=== PATIENT | female | born 1940 | race Caucasian/White ===

== ENCOUNTER 2016-05-05 02:36 | Inpatient (IN) | payer MEDICARE ==
[~2016-05-05] VITALS: Ht 152.4 cm; Wt 74.9 kg
[2016-05-05] MEDS ORDERED: AMLO-511 PO (02:47)
[2016-05-05] MEDS ORDERED: METF500T4 PO (02:47)
[2016-05-05] MEDS ORDERED: METO25 PO (02:47)
[2016-05-05 02:56] LABS: GLUCOSE COMMENT 1 Doctor Notified; GLUCOSE,POINT OF CARE 151 MG/DL (70-110)
[2016-05-05] MEDS ORDERED: 0.9% SODIUM CHLORIDE 5 ML NEB SOLUTION NEB ONE (03:09)
[2016-05-05] MEDS ORDERED: CefTRIAXone 1 GM/DEXTROSE 50 ML IV ONE (03:15)
[2016-05-05] MEDS ORDERED: ALBUTEROL SULFATE 5 MG/ML 20 ML NEB SOLN [BULK] NEB ONE (03:15)
[2016-05-05] MEDS ORDERED: IPRATROPIUM BROMIDE 0.5 MG/2.5 ML NEB SOLUTION NEB ONE (03:15)
[2016-05-05 03:31] LABS: BASOPHILS % (AUTO) 0.3 % (0.0-2.0); EOSINOPHILS % (AUTO) 3.7 % (1.0-6.0); HEMATOCRIT 31.8 % (36-46); HEMOGLOBIN 10.3 g/dL (12.0-16.0); LYMPHOCYTES % (AUTO) 38.6 % (22.0-44.0); MEAN CORPUSCULAR HEMOGLOBIN 30.7 pg (26.0-34.0); MEAN CORPUSCULAR HGB CONC 32.5 G/dL (31.0-37.0); MEAN CORPUSCULAR VOLUME 94 fL (80-100); MONOCYTES # (AUTO) 0.5 K/uL (0.1-1.0); MONOCYTES % (AUTO) 4.8 % (2.0-9.0); NEUTROPHILS # (AUTO) 5.5 K/uL (1.8-7.7); NEUTROPHILS % (AUTO) 52.6 % (40.0-70.0); PLATELET COUNT (AUTO) 202 K/uL (150-450); RED BLOOD CELL COUNT(AUTO) 3.37 MIL/uL (4.00-5.20); RED CELL DISTRIBUTION WIDTH 12.8 % (11.5-14.5); WHITE BLOOD COUNT (AUTO) 10.4 K/uL (4.5-11.0)
[2016-05-05 03:40] LABS: CREATININE 3.1 mg/dL (0.60-1.30); POTASSIUM 4.8 mmol/L (3.5-5.1)
[2016-05-05 04:00] LABS: LACTIC ACID 2.5 mmol/L (0.4-2.0)
[2016-05-05 04:05] LABS: ALBUMIN 3.2 g/dL (3.4-5.0); BILIRUBIN,TOTAL 0.3 mg/dL (0.1-1.0); CREATINE KINASE MB 5.3 ng/mL (0-5); TOTAL PROTEIN, SERUM 6.8 g/dL (6.4-8.2)
[2016-05-05] MEDS ORDERED: NITROGLYCERIN 2% (1 GM=INCH) PACKET TP ONE (04:15)
[2016-05-05] MEDS ORDERED: FUROSEMIDE 40 MG/4 ML VIAL IVP ONE (04:15)
[2016-05-05] MEDS ORDERED: ASPIRIN 325 MG EC TABLET PO ONE (04:15)
[2016-05-05 04:51] LABS: APPEARANCE,URINE CLOUDY (CLEAR); GLUCOSE, URINE (UA) NEGATIVE (NEGATIVE); KETONES,URINE NEGATIVE (NEGATIVE); LEUKOCYTE ESTERASE ,URINE MODERATE (NEGATIVE); OCCULT BLOOD,URINE TRACE (NEGATIVE); PH,URINE 6.5 (5.0-8.0); PROTEIN,URINE SEE CONFIRM (NEGATIVE)
[2016-05-05 04:53] LABS: ADD UA MICROSCOPIC YES
[2016-05-05] MEDS ORDERED: ZOLPIDEM TARTRATE 10 MG TABLET PO PRN (05:00)
[2016-05-05] MEDS ORDERED: HEPARIN SODIUM,PORCINE 5,000 UNITS/ML VIAL IVP ONE ×2 (05:00→05:15)
[2016-05-05] MEDS ORDERED: ACETAMINOPHEN 325 MG TABLET PO PRN (05:00)
[2016-05-05 05:02] LABS: SULFOSALICYLIC ACID,URINE 3+ (Negative); WBC,URINE 51-100 /HPF (0-5)
[2016-05-05] MEDS ORDERED: HEPARIN SODIUM,PORCINE 5,000 UNITS/ML VIAL IVP PRN ×2 (05:15)
[2016-05-05 05:23] LABS: REFLEX LACTIC ACID? YES YES
[2016-05-05 05:26] LABS: PROTHROMBIN TIME 10.7 SEC (9.4-11.6)
[2016-05-05] MEDS: HEPARIN SODIUM 25000 UNITS/D5W 250 ML IV PRN (05:47)
[2016-05-05] MEDS ORDERED: MAG HYDROX/AL HYDROX/SIMETH ES 30 ML SUSPENSION UDCUP PO ONE (06:45)
[2016-05-05 07:58] LABS: HEMATOCRIT 28.3 % (36-46); HEMOGLOBIN 9.3 g/dL (12.0-16.0); MEAN CORPUSCULAR HEMOGLOBIN 30.8 pg (26.0-34.0); MEAN CORPUSCULAR HGB CONC 32.9 G/dL (31.0-37.0); MEAN CORPUSCULAR VOLUME 93 fL (80-100); PLATELET COUNT (AUTO) 196 K/uL (150-450); RED BLOOD CELL COUNT(AUTO) 3.03 MIL/uL (4.00-5.20); WHITE BLOOD COUNT (AUTO) 11.4 K/uL (4.5-11.0)
[2016-05-05] MEDS ORDERED: HEPARIN SODIUM,PORCINE 5,000 UNITS/ML VIAL SQ SCH (08:00)
[2016-05-05 08:15] LABS: BAND NEUTROPHILS % (MANUAL) 16 % (1-5); LYMPHOCYTES % (MANUAL) 10 % (22-44); RBC MORPHOLOGY COMMENT NORMAL RBC MORPH; TOTAL CELLS COUNTED 100
[2016-05-05 08:22] LABS: HEMOGLOBIN A1C 5.2 % (4.5-6.2)
[2016-05-05] MEDS: PANTOPRAZOLE SODIUM 40 MG DR TABLET PO SCH (08:50)
[2016-05-05] MEDS: AmLODIPine BESYLATE 5 MG TABLET PO SCH (08:50)
[2016-05-05] MEDS ORDERED: METOPROLOL TARTRATE 25 MG TABLET PO SCH (09:00)
[2016-05-05 09:57] LABS: GLUCOSE,POINT OF CARE 232 MG/DL (70-110)
[2016-05-05 12:06] LABS: GLUCOSE,POINT OF CARE 140 MG/DL (70-110)
[2016-05-06 02:25] LABS: GLUCOSE,POINT OF CARE 106 MG/DL (70-110)
[2016-05-06 03:12] LABS: BASOPHILS # (AUTO) 0.06 K/uL (0.00-0.20); BASOPHILS % (AUTO) 0.7 % (0.0-2.0); EOSINOPHILS # (AUTO) 0.12 K/uL (0.00-0.70); EOSINOPHILS % (AUTO) 1.37 % (1.0-6.0); HEMATOCRIT 26.3 % (36-46); HEMOGLOBIN 8.8 g/dL (12.0-16.0); LYMPHOCYTES # (AUTO) 1.9 K/uL (1.0-4.8); LYMPHOCYTES % (AUTO) 21.6 % (22.0-44.0); MEAN CORPUSCULAR HEMOGLOBIN 30.9 pg (26.0-34.0); MEAN CORPUSCULAR HGB CONC 33.3 G/dL (31.0-37.0); MEAN CORPUSCULAR VOLUME 93 fL (80-100); MONOCYTES # (AUTO) 0.6 K/uL (0.1-1.0); MONOCYTES % (AUTO) 7.2 % (2.0-9.0); NEUTROPHILS # (AUTO) 6.2 K/uL (1.8-7.7); NEUTROPHILS % (AUTO) 69.2 % (40.0-70.0); PLATELET COUNT (AUTO) 183 K/uL (150-450); RED BLOOD CELL COUNT(AUTO) 2.84 MIL/uL (4.00-5.20); WHITE BLOOD COUNT (AUTO) 8.9 K/uL (4.5-11.0)
[2016-05-06] MEDS: HEPARIN SODIUM 25000 UNITS/D5W 250 ML IV PRN (06:24)
[2016-05-06] MEDS: FUROSEMIDE 40 MG/4 ML VIAL IVP SCH (08:03)
[2016-05-06] MEDS: PANTOPRAZOLE SODIUM 40 MG DR TABLET PO SCH (08:04)
[2016-05-06] MEDS: NITROGLYCERIN 2% (1 GM=INCH) PACKET TP SCH ×2 (08:04→16:22)
[2016-05-06] MEDS: AmLODIPine BESYLATE 5 MG TABLET PO SCH (08:04)
[2016-05-06 08:31] LABS: BASOPHILS % (AUTO) 1.1 % (0.0-2.0); EOSINOPHILS % (AUTO) 1.5 % (1.0-6.0); HEMOGLOBIN 9.1 g/dL (12.0-16.0); LYMPHOCYTES # (AUTO) 1.5 K/uL (1.0-4.8); LYMPHOCYTES % (AUTO) 16.1 % (22.0-44.0); MEAN CORPUSCULAR HEMOGLOBIN 30.3 pg (26.0-34.0); MEAN CORPUSCULAR HGB CONC 32.6 G/dL (31.0-37.0); MEAN CORPUSCULAR VOLUME 93 fL (80-100); MONOCYTES # (AUTO) 0.7 K/uL (0.1-1.0); MONOCYTES % (AUTO) 7.1 % (2.0-9.0); NEUTROPHILS # (AUTO) 6.9 K/uL (1.8-7.7); NEUTROPHILS % (AUTO) 74.2 % (40.0-70.0); PLATELET COUNT (AUTO) 194 K/uL (150-450); RED BLOOD CELL COUNT(AUTO) 3.01 MIL/uL (4.00-5.20); RED CELL DISTRIBUTION WIDTH 12.8 % (11.5-14.5); WHITE BLOOD COUNT (AUTO) 9.3 K/uL (4.5-11.0)
[2016-05-06 08:42] LABS: INR 1.1 (0.9-1.1); PROTHROMBIN TIME 11.1 SEC (9.4-11.6)
[2016-05-06 08:44] LABS: CALCIUM, TOTAL 8.9 mg/dL (8.8-10.5); CREATININE 3.28 mg/dL (0.60-1.30); POTASSIUM 5.5 mmol/L (3.5-5.1)
[2016-05-06] MEDS ORDERED: METOPROLOL TARTRATE 25 MG TABLET PO SCH (09:00)
[2016-05-06] MEDS ORDERED: SODIUM POLYSTYRENE SULFONATE 15 GM/60 ML SUSPENSION BOTTLE PO ONE ×2 (09:00→09:30)
[2016-05-06 09:05] LABS: BILIRUBIN,TOTAL 0.5 mg/dL (0.1-1.0); MAGNESIUM 1.9 mg/dL (1.80-2.40); TOTAL PROTEIN, SERUM 6.9 g/dL (6.4-8.2)
[2016-05-06] MEDS: ASPIRIN 81 MG EC TABLET PO SCH (09:24)
[2016-05-06] MEDS: CefTRIAXone 1 GM/DEXTROSE 50 ML IV SCH (09:39)
[2016-05-06] MEDS: EPOETIN ALFA 10,000 UNITS/ML VIAL SQ SCH (09:40)
[2016-05-06] MEDS: METOPROLOL TARTRATE 25 MG TABLET PO SCH ×2 (10:10→10:44)
[2016-05-06] MEDS ORDERED: ONDANSETRON HCL 4 MG/2 ML VIAL IVP PRN (11:00)
[2016-05-06 12:00] VITALS: BP 165/87
[2016-05-06 14:11] LABS: GLUCOSE,POINT OF CARE 154 MG/DL (70-110)
[2016-05-06 16:00] VITALS: BP 176/95
[2016-05-06] MEDS ORDERED: INFLUENZA VIRUS VACCINE QVS 2016-17 (3YR+)/PF 60 MCG/0.5 ML SYRINGE IM ONE (16:30)
[2016-05-06 20:00] VITALS: BP 166/84
[2016-05-06 20:35] LABS: EOSINOPHILS % (AUTO) 0 % (1.0-6.0); HEMATOCRIT 28.2 % (36-46); HEMOGLOBIN 9.4 g/dL (12.0-16.0); LYMPHOCYTES # (AUTO) 1.3 K/uL (1.0-4.8); LYMPHOCYTES % (AUTO) 8.2 % (22.0-44.0); MEAN CORPUSCULAR HEMOGLOBIN 30.6 pg (26.0-34.0); MEAN CORPUSCULAR HGB CONC 33.2 G/dL (31.0-37.0); MEAN CORPUSCULAR VOLUME 92 fL (80-100); MONOCYTES # (AUTO) 0.7 K/uL (0.1-1.0); MONOCYTES % (AUTO) 4.6 % (2.0-9.0); NEUTROPHILS # (AUTO) 13.6 K/uL (1.8-7.7); PLATELET COUNT (AUTO) 185 K/uL (150-450); RED BLOOD CELL COUNT(AUTO) 3.06 MIL/uL (4.00-5.20); RED CELL DISTRIBUTION WIDTH 12.5 % (11.5-14.5)
[2016-05-06 20:36] LABS: NEUTROPHILS % (AUTO) 87.2 % (40.0-70.0); WHITE BLOOD COUNT (AUTO) 15.6 K/uL (4.5-11.0)
[2016-05-06 20:50] LABS: RBC MORPHOLOGY COMMENT NORMAL RBC MORPH
[2016-05-07] VITALS (13 sets, daily range): BP systolic 140–175; BP diastolic 67–86
[2016-05-07] MEDS: NITROGLYCERIN 2% (1 GM=INCH) PACKET TP SCH ×3 (00:09→16:20)
[2016-05-07] MEDS: DEXTROSE 50%-WATER 25 GM/50 ML SYRINGE IVP PRN ×2 (05:31→17:41)
[2016-05-07 06:15] LABS: BASOPHILS % (AUTO) 0.3 % (0.0-2.0); EOSINOPHILS % (AUTO) 0.4 % (1.0-6.0); HEMATOCRIT 25.2 % (36-46); HEMOGLOBIN 8.2 g/dL (12.0-16.0); LYMPHOCYTES # (AUTO) 2.1 K/uL (1.0-4.8); LYMPHOCYTES % (AUTO) 19.6 % (22.0-44.0); MEAN CORPUSCULAR HEMOGLOBIN 30.4 pg (26.0-34.0); MEAN CORPUSCULAR HGB CONC 32.5 G/dL (31.0-37.0); MEAN CORPUSCULAR VOLUME 94 fL (80-100); MONOCYTES # (AUTO) 0.7 K/uL (0.1-1.0); MONOCYTES % (AUTO) 6.7 % (2.0-9.0); NEUTROPHILS # (AUTO) 7.9 K/uL (1.8-7.7); PLATELET COUNT (AUTO) 168 K/uL (150-450); RED BLOOD CELL COUNT(AUTO) 2.69 MIL/uL (4.00-5.20); RED CELL DISTRIBUTION WIDTH 12.4 % (11.5-14.5); WHITE BLOOD COUNT (AUTO) 10.9 K/uL (4.5-11.0)
[2016-05-07 06:20] LABS: ALBUMIN 2.5 g/dL (3.4-5.0); BILIRUBIN,TOTAL 0.5 mg/dL (0.1-1.0); CALCIUM, TOTAL 8.4 mg/dL (8.8-10.5); CHOL/HDL RATIO 2.1 (3.9-5.7); CREATININE 3.37 mg/dL (0.60-1.30); MAGNESIUM 1.8 mg/dL (1.80-2.40); PHOSPHORUS 5.1 mg/dL (2.5-4.9); TOTAL PROTEIN, SERUM 5.9 g/dL (6.4-8.2)
[2016-05-07 07:32] LABS: HEMOGLOBIN A1C 5.1 % (4.5-6.2)
[2016-05-07] MEDS ORDERED: SODIUM CHLORIDE 0.9% 250 ML IV ONE (08:49)
[2016-05-07] MEDS: FUROSEMIDE 40 MG/4 ML VIAL IVP SCH (09:46)
[2016-05-07] MEDS: PANTOPRAZOLE SODIUM 40 MG DR TABLET PO SCH (09:47)
[2016-05-07] MEDS: AmLODIPine BESYLATE 5 MG TABLET PO SCH (09:47)
[2016-05-07] MEDS: ASPIRIN 81 MG EC TABLET PO SCH (09:48)
[2016-05-07] MEDS: CefTRIAXone 1 GM/DEXTROSE 50 ML IV SCH (09:49)
[2016-05-07] MEDS ORDERED: SODIUM CHLORIDE 0.9% 500 ML IV ONE (09:53)
[2016-05-07] MEDS: SOD FERRIC GLUC COMPLX/SUCROSE 125 MG in SODIUM CHLORIDE 0.9% 100 ML IV SCH (11:22)
[2016-05-07] MEDS: CALCIUM ACETATE 667 MG CAPSULE PO SCH ×2 (12:00→18:00)
[2016-05-07] MEDS ORDERED: FUROSEMIDE 40 MG/4 ML VIAL IVP ONE (12:00)
[2016-05-07] MEDS: INSULIN ASPART 100 UNITS/ML SQ PRN (12:21)
[2016-05-07 16:31] LABS: GLUCOSE COMMENT 1 Received Meds; GLUCOSE,POINT OF CARE 163 MG/DL (70-110)
[2016-05-07 18:26] LABS: GLUCOSE COMMENT 1 Juice/Food/D50 Given; GLUCOSE,POINT OF CARE 64 MG/DL (70-110)
[2016-05-07 18:26] LABS: GLUCOSE,POINT OF CARE 178 MG/DL (70-110)
[2016-05-07] MEDS: METOPROLOL TARTRATE 25 MG TABLET PO SCH (20:24)
[2016-05-07 20:46] LABS: GLUCOSE COMMENT 1 Received Meds; GLUCOSE,POINT OF CARE 169 MG/DL (70-110)
[2016-05-07 22:23] LABS: HEMOGLOBIN 10.1 g/dL (12.0-16.0)
[2016-05-08] VITALS (7 sets, daily range): BP systolic 148–175; BP diastolic 71–89
[2016-05-08] MEDS: NITROGLYCERIN 2% (1 GM=INCH) PACKET TP SCH ×3 (01:26→16:16)
[2016-05-08 06:41] LABS: BASOPHILS % (AUTO) 0.2 % (0.0-2.0); EOSINOPHILS % (AUTO) 4.3 % (1.0-6.0); HEMATOCRIT 30.2 % (36-46); HEMOGLOBIN 9.8 g/dL (12.0-16.0); LYMPHOCYTES # (AUTO) 1.8 K/uL (1.0-4.8); LYMPHOCYTES % (AUTO) 19.9 % (22.0-44.0); MEAN CORPUSCULAR HEMOGLOBIN 30.4 pg (26.0-34.0); MEAN CORPUSCULAR HGB CONC 32.4 G/dL (31.0-37.0); MEAN CORPUSCULAR VOLUME 94 fL (80-100); MONOCYTES # (AUTO) 0.7 K/uL (0.1-1.0); MONOCYTES % (AUTO) 8.1 % (2.0-9.0); NEUTROPHILS # (AUTO) 6.1 K/uL (1.8-7.7); NEUTROPHILS % (AUTO) 67.5 % (40.0-70.0); PLATELET COUNT (AUTO) 162 K/uL (150-450); RED BLOOD CELL COUNT(AUTO) 3.22 MIL/uL (4.00-5.20); RED CELL DISTRIBUTION WIDTH 13.3 % (11.5-14.5)
[2016-05-08 07:00] LABS: ALBUMIN 2.6 g/dL (3.4-5.0); BILIRUBIN,TOTAL 0.5 mg/dL (0.1-1.0); CALCIUM, TOTAL 8.4 mg/dL (8.8-10.5); CREATININE 3.4 mg/dL (0.60-1.30); MAGNESIUM 1.8 mg/dL (1.80-2.40); PHOSPHORUS 4.4 mg/dL (2.5-4.9); POTASSIUM 3.8 mmol/L (3.5-5.1); TOTAL PROTEIN, SERUM 6.2 g/dL (6.4-8.2)
[2016-05-08] MEDS: CALCIUM ACETATE 667 MG CAPSULE PO SCH ×3 (08:26→17:50)
[2016-05-08] MEDS: CefTRIAXone 1 GM/DEXTROSE 50 ML IV SCH (08:26)
[2016-05-08] MEDS: ASPIRIN 81 MG EC TABLET PO SCH (08:33)
[2016-05-08] MEDS ORDERED: SODIUM CHLORIDE 0.9% 100 ML ONE (08:39)
[2016-05-08] MEDS: METOPROLOL TARTRATE 25 MG TABLET PO SCH ×2 (08:58→20:14)
[2016-05-08] MEDS: FUROSEMIDE 40 MG/4 ML VIAL IVP SCH (08:58)
[2016-05-08] MEDS: AmLODIPine BESYLATE 5 MG TABLET PO SCH (08:58)
[2016-05-08] MEDS: PANTOPRAZOLE SODIUM 40 MG DR TABLET PO SCH (08:58)
[2016-05-08] MEDS: SOD FERRIC GLUC COMPLX/SUCROSE 125 MG in SODIUM CHLORIDE 0.9% 100 ML IV SCH (08:59)
[2016-05-08] MEDS: EPOETIN ALFA 10,000 UNITS/ML VIAL SQ SCH (08:59)
[2016-05-08 11:16] LABS: GLUCOSE,POINT OF CARE 132 MG/DL (70-110)
[2016-05-08 17:46] LABS: GLUCOSE,POINT OF CARE 88 MG/DL (70-110)
[2016-05-08 17:47] LABS: GLUCOSE,POINT OF CARE 116 MG/DL (70-110)
[2016-05-08 17:47] LABS: GLUCOSE,POINT OF CARE 113 MG/DL (70-110)
[2016-05-08] MEDS: INSULIN ASPART 100 UNITS/ML SQ PRN (17:52)
[2016-05-08 21:31] LABS: GLUCOSE,POINT OF CARE 123 MG/DL (70-110)
[2016-05-08 21:31] LABS: GLUCOSE,POINT OF CARE 141 MG/DL (70-110)
[2016-05-08 21:31] LABS: GLUCOSE COMMENT 1 Received Meds; GLUCOSE,POINT OF CARE 66 MG/DL (70-110)
[2016-05-08 22:46] LABS: GLUCOSE COMMENT 1 Received Meds; GLUCOSE,POINT OF CARE 171 MG/DL (70-110)
[2016-05-09] MEDS: NITROGLYCERIN 2% (1 GM=INCH) PACKET TP SCH ×4 (01:45→23:55)
[2016-05-09 04:16] LABS: ALPHA-1 URINE (ELP24) 5.2 %; ALPHA-2 URINE(ELP24) 4.5 %; BETA URINE(ELP24) 12.2 %; GAMMA URINE(ELP24) 14.1 %
[2016-05-09 04:32] VITALS: BP 158/73
[2016-05-09 06:46] LABS: GLUCOSE,POINT OF CARE 87 MG/DL (70-110)
[2016-05-09 06:47] LABS: BASOPHILS % (AUTO) 0.4 % (0.0-2.0); EOSINOPHILS % (AUTO) 8.4 % (1.0-6.0); HEMATOCRIT 30.8 % (36-46); LYMPHOCYTES # (AUTO) 1.6 K/uL (1.0-4.8); LYMPHOCYTES % (AUTO) 21.4 % (22.0-44.0); MEAN CORPUSCULAR HEMOGLOBIN 30.4 pg (26.0-34.0); MEAN CORPUSCULAR HGB CONC 32.3 G/dL (31.0-37.0); MEAN CORPUSCULAR VOLUME 94 fL (80-100); MONOCYTES # (AUTO) 0.7 K/uL (0.1-1.0); MONOCYTES % (AUTO) 9.5 % (2.0-9.0); NEUTROPHILS # (AUTO) 4.5 K/uL (1.8-7.7); NEUTROPHILS % (AUTO) 60.3 % (40.0-70.0); PLATELET COUNT (AUTO) 159 K/uL (150-450); RED BLOOD CELL COUNT(AUTO) 3.28 MIL/uL (4.00-5.20); WHITE BLOOD COUNT (AUTO) 7.5 K/uL (4.5-11.0)
[2016-05-09 07:11] LABS: ALBUMIN 2.4 g/dL (3.4-5.0); BILIRUBIN,TOTAL 0.3 mg/dL (0.1-1.0); CALCIUM, TOTAL 8.6 mg/dL (8.8-10.5); CREATININE 3.36 mg/dL (0.60-1.30); MAGNESIUM 1.7 mg/dL (1.80-2.40); POTASSIUM 3.5 mmol/L (3.5-5.1); TOTAL PROTEIN, SERUM 6.2 g/dL (6.4-8.2)
[2016-05-09 07:34] VITALS: BP 152/69
[2016-05-09] MEDS: AmLODIPine BESYLATE 5 MG TABLET PO SCH (08:29)
[2016-05-09] MEDS: CefTRIAXone 1 GM/DEXTROSE 50 ML IV SCH (08:29)
[2016-05-09] MEDS: FUROSEMIDE 40 MG/4 ML VIAL IVP SCH (08:29)
[2016-05-09] MEDS: PANTOPRAZOLE SODIUM 40 MG DR TABLET PO SCH (08:30)
[2016-05-09] MEDS: ASPIRIN 81 MG EC TABLET PO SCH (08:30)
[2016-05-09] MEDS: CALCIUM ACETATE 667 MG CAPSULE PO SCH ×3 (08:30→17:48)
[2016-05-09] MEDS: METOPROLOL TARTRATE 25 MG TABLET PO SCH ×2 (08:30→20:31)
[2016-05-09] MEDS: SOD FERRIC GLUC COMPLX/SUCROSE 125 MG in SODIUM CHLORIDE 0.9% 100 ML IV SCH (09:32)
[2016-05-09 11:37] VITALS: BP 160/76
[2016-05-09 12:17] LABS: GLUCOSE COMMENT 1 Received Meds; GLUCOSE,POINT OF CARE 133 MG/DL (70-110)
[2016-05-09] MEDS: ACETYLCYSTEINE 20% 200 MG/ML 4 ML ORAL SOLUTION PO SCH ×2 (12:42→20:36)
[2016-05-09 15:31] VITALS: BP 161/73
[2016-05-09 17:31] LABS: GLUCOSE COMMENT 1 Received Meds; GLUCOSE,POINT OF CARE 142 MG/DL (70-110)
[2016-05-09] MEDS: SODIUM CHLORIDE 0.9% 1,000 ML IV SCH (17:51)
[2016-05-09] MEDS: INSULIN ASPART 100 UNITS/ML SQ PRN (18:00)
[2016-05-09 20:06] VITALS: BP 156/74
[2016-05-10] VITALS (8 sets, daily range): BP systolic 139–172; BP diastolic 66–81
[2016-05-10 07:51] LABS: GLUCOSE,POINT OF CARE 106 MG/DL (70-110)
[2016-05-10] MEDS: SODIUM CHLORIDE 0.9% 1,000 ML IV SCH (07:52)
[2016-05-10] MEDS: ACETYLCYSTEINE 20% 200 MG/ML 4 ML ORAL SOLUTION PO SCH (07:53)
[2016-05-10] MEDS: PANTOPRAZOLE SODIUM 40 MG DR TABLET PO SCH (07:53)
[2016-05-10] MEDS: CefTRIAXone 1 GM/DEXTROSE 50 ML IV SCH (07:53)
[2016-05-10] MEDS: CALCIUM ACETATE 667 MG CAPSULE PO SCH ×3 (07:53→18:18)
[2016-05-10] MEDS: EPOETIN ALFA 10,000 UNITS/ML VIAL SQ SCH (07:53)
[2016-05-10] MEDS: METOPROLOL TARTRATE 25 MG TABLET PO SCH ×2 (07:54→20:55)
[2016-05-10] MEDS: NITROGLYCERIN 2% (1 GM=INCH) PACKET TP SCH ×2 (07:54→16:56)
[2016-05-10] MEDS: ASPIRIN 81 MG EC TABLET PO SCH (07:54)
[2016-05-10] MEDS: AmLODIPine BESYLATE 5 MG TABLET PO SCH (07:54)
[2016-05-10 09:22] LABS: CALCIUM, TOTAL 8.4 mg/dL (8.8-10.5); CREATININE 3.61 mg/dL (0.60-1.30); POTASSIUM 3.7 mmol/L (3.5-5.1)
[2016-05-10] MEDS: SOD FERRIC GLUC COMPLX/SUCROSE 125 MG in SODIUM CHLORIDE 0.9% 100 ML IV SCH (11:40)
[2016-05-10 20:16] LABS: GLUCOSE COMMENT 1 Received Meds; GLUCOSE,POINT OF CARE 138 MG/DL (70-110)
[2016-05-10 20:16] LABS: GLUCOSE,POINT OF CARE 93 MG/DL (70-110)
[2016-05-10 20:16] LABS: GLUCOSE,POINT OF CARE 136 MG/DL (70-110)
[2016-05-11] MEDS: NITROGLYCERIN 2% (1 GM=INCH) PACKET TP SCH ×3 (00:26→16:06)
[2016-05-11 01:26] LABS: GLUCOSE COMMENT 1 Received Meds; GLUCOSE,POINT OF CARE 174 MG/DL (70-110)
[2016-05-11 04:34] VITALS: BP 184/78
[2016-05-11] MEDS: HydrALAZINE HCL 20 MG/ML VIAL IVP PRN (04:39)
[2016-05-11 07:01] LABS: GLUCOSE,POINT OF CARE 91 MG/DL (70-110)
[2016-05-11 07:34] LABS: BASOPHILS % (AUTO) 0.6 % (0.0-2.0); EOSINOPHILS % (AUTO) 8.4 % (1.0-6.0); HEMATOCRIT 32.9 % (36-46); HEMOGLOBIN 10.7 g/dL (12.0-16.0); LYMPHOCYTES # (AUTO) 1.8 K/uL (1.0-4.8); LYMPHOCYTES % (AUTO) 26.8 % (22.0-44.0); MEAN CORPUSCULAR HEMOGLOBIN 30.7 pg (26.0-34.0); MEAN CORPUSCULAR HGB CONC 32.4 G/dL (31.0-37.0); MEAN CORPUSCULAR VOLUME 95 fL (80-100); MONOCYTES # (AUTO) 0.7 K/uL (0.1-1.0); MONOCYTES % (AUTO) 10.7 % (2.0-9.0); NEUTROPHILS # (AUTO) 3.6 K/uL (1.8-7.7); NEUTROPHILS % (AUTO) 53.5 % (40.0-70.0); PLATELET COUNT (AUTO) 197 K/uL (150-450); RED BLOOD CELL COUNT(AUTO) 3.48 MIL/uL (4.00-5.20); WHITE BLOOD COUNT (AUTO) 6.8 K/uL (4.5-11.0)
[2016-05-11 07:53] LABS: CALCIUM, TOTAL 8.6 mg/dL (8.8-10.5); CREATININE 3.37 mg/dL (0.60-1.30); MAGNESIUM 1.6 mg/dL (1.80-2.40); PHOSPHORUS 2.6 mg/dL (2.5-4.9); POTASSIUM 3.9 mmol/L (3.5-5.1)
[2016-05-11 07:59] VITALS: BP 137/61
[2016-05-11] MEDS: CALCIUM ACETATE 667 MG CAPSULE PO SCH ×3 (08:42→18:22)
[2016-05-11] MEDS: ASPIRIN 81 MG EC TABLET PO SCH (08:42)
[2016-05-11] MEDS: PANTOPRAZOLE SODIUM 40 MG DR TABLET PO SCH (08:42)
[2016-05-11] MEDS: METOPROLOL TARTRATE 25 MG TABLET PO SCH ×2 (08:42→21:10)
[2016-05-11] MEDS: AmLODIPine BESYLATE 5 MG TABLET PO SCH (08:42)
[2016-05-11] MEDS: CefTRIAXone 1 GM/DEXTROSE 50 ML IV SCH (08:54)
[2016-05-11 11:25] VITALS: BP 163/67
[2016-05-11] MEDS: SOD FERRIC GLUC COMPLX/SUCROSE 125 MG in SODIUM CHLORIDE 0.9% 100 ML IV SCH (11:56)
[2016-05-11 15:34] VITALS: BP 161/72
[2016-05-11] MEDS ORDERED: MAGNESIUM SULFATE 3 GM in DEXTROSE 5%-WATER 100 ML IV ONE (15:45)
[2016-05-11] MEDS: ACETYLCYSTEINE 20% 200 MG/ML 4 ML ORAL SOLUTION PO SCH ×2 (16:05→21:10)
[2016-05-11 18:01] LABS: GLUCOSE,POINT OF CARE 128 MG/DL (70-110)
[2016-05-11 18:41] LABS: GLUCOSE,POINT OF CARE 104 MG/DL (70-110)
[2016-05-11] MEDS ORDERED: 0.9% SODIUM CHLORIDE 10 ML SYRINGE IVP PRN (18:45)
[2016-05-11 19:55] VITALS: BP 160/79
[2016-05-11 23:41] VITALS: BP 158/85
[2016-05-12] VITALS (18 sets, daily range): BP systolic 149–195; BP diastolic 57–85
[2016-05-12] MEDS: NITROGLYCERIN 2% (1 GM=INCH) PACKET TP SCH ×3 (00:05→17:36)
[2016-05-12 07:28] LABS: BASOPHILS # (AUTO) 0.05 K/uL (0.00-0.20); BASOPHILS % (AUTO) 0.7 % (0.0-2.0); EOSINOPHILS # (AUTO) 0.56 K/uL (0.00-0.70); EOSINOPHILS % (AUTO) 7.64 % (1.0-6.0); HEMATOCRIT 31.4 % (36-46); HEMOGLOBIN 10.4 g/dL (12.0-16.0); LYMPHOCYTES # (AUTO) 1.8 K/uL (1.0-4.8); MEAN CORPUSCULAR HEMOGLOBIN 31.2 pg (26.0-34.0); MEAN CORPUSCULAR HGB CONC 33.2 G/dL (31.0-37.0); MEAN CORPUSCULAR VOLUME 94 fL (80-100); MONOCYTES # (AUTO) 0.8 K/uL (0.1-1.0); MONOCYTES % (AUTO) 10.5 % (2.0-9.0); NEUTROPHILS # (AUTO) 4.1 K/uL (1.8-7.7); NEUTROPHILS % (AUTO) 56.2 % (40.0-70.0); PLATELET COUNT (AUTO) 198 K/uL (150-450); RED BLOOD CELL COUNT(AUTO) 3.35 MIL/uL (4.00-5.20); RED CELL DISTRIBUTION WIDTH 13.3 % (11.5-14.5); WHITE BLOOD COUNT (AUTO) 7.3 K/uL (4.5-11.0)
[2016-05-12] MEDS: CALCIUM ACETATE 667 MG CAPSULE PO SCH ×3 (07:31→17:36)
[2016-05-12 07:39] LABS: CALCIUM, TOTAL 8.6 mg/dL (8.8-10.5); CREATININE 3.29 mg/dL (0.60-1.30); MAGNESIUM 2.5 mg/dL (1.80-2.40); PHOSPHORUS 2.8 mg/dL (2.5-4.9); POTASSIUM 3.9 mmol/L (3.5-5.1)
[2016-05-12] MEDS: CefTRIAXone 1 GM/DEXTROSE 50 ML IV SCH (09:12)
[2016-05-12] MEDS: SOD FERRIC GLUC COMPLX/SUCROSE 125 MG in SODIUM CHLORIDE 0.9% 100 ML IV SCH (10:23)
[2016-05-12] MEDS ORDERED: SODIUM BICARBONATE 150 MEQ in DEXTROSE 5%-WATER 850 ML IV ONE (11:00)
[2016-05-12] MEDS ORDERED: HEPARIN SODIUM 1000 UNITS/NS 1,000 ML ONE (11:42)
[2016-05-12] MEDS ORDERED: IOHEXOL 300 MG/ML 150 ML VIAL ONE (11:42)
[2016-05-12] MEDS ORDERED: SODIUM BICARBONATE 50 MEQ/50 ML VIAL ONE (11:42)
[2016-05-12] MEDS ORDERED: FentaNYL CITRATE-PF 100 MCG/2 ML VIAL ONE (12:08)
[2016-05-12] MEDS ORDERED: HEPARIN SODIUM 2,000 UNITS in HEPARIN SODIUM 1000 UNITS/NS 1,000 ML IARTER ONE (12:10)
[2016-05-12] MEDS ORDERED: SODIUM CHLORIDE 0.9% 500 ML IV ONE (12:10)
[2016-05-12] MEDS ORDERED: FentaNYL CITRATE-PF 100 MCG/2 ML VIAL IVP ONE (12:15)
[2016-05-12] MEDS ORDERED: LIDOCAINE 1% 30 ML/SOD BICARB 8.4% 4 ML SQ ONE (12:15)
[2016-05-12] MEDS ORDERED: IOHEXOL 300 MG/ML 150 ML VIAL IARTER ONE (12:15)
[2016-05-12] MEDS ORDERED: IOHEXOL 300 MG/ML 100 ML VIAL ONE (12:27)
[2016-05-12] MEDS ORDERED: VERAPAMIL HCL 2.5 MG/ML 2 ML VIAL ONE (12:27)
[2016-05-12] MEDS ORDERED: IOHEXOL 300 MG/ML 50 ML VIAL ONE (12:27)
[2016-05-12] MEDS ORDERED: NITROGLYCERIN 50 MG/D5% WATER 0 ML ONE (12:27)
[2016-05-12] MEDS: PANTOPRAZOLE SODIUM 40 MG DR TABLET PO SCH (13:23)
[2016-05-12] MEDS: ASPIRIN 81 MG EC TABLET PO SCH (13:23)
[2016-05-12] MEDS: AmLODIPine BESYLATE 5 MG TABLET PO SCH (13:24)
[2016-05-12] MEDS: METOPROLOL TARTRATE 25 MG TABLET PO SCH ×2 (13:24→20:42)
[2016-05-12] MEDS: ACETYLCYSTEINE 20% 200 MG/ML 4 ML ORAL SOLUTION PO SCH ×2 (13:24→20:41)
[2016-05-12] MEDS: HydrALAZINE HCL 20 MG/ML VIAL IVP PRN (17:39)
[2016-05-12 19:01] LABS: GLUCOSE,POINT OF CARE 121 MG/DL (70-110)
[2016-05-12] MEDS: INSULIN ASPART 100 UNITS/ML SQ PRN (20:56)
[2016-05-13] MEDS: NITROGLYCERIN 2% (1 GM=INCH) PACKET TP SCH ×4 (00:23→23:52)
[2016-05-13 04:26] VITALS: BP 158/67
[2016-05-13 05:51] LABS: GLUCOSE COMMENT 1 Received Meds; GLUCOSE,POINT OF CARE 147 MG/DL (70-110)
[2016-05-13 06:35] LABS: BASOPHILS % (AUTO) 0.4 % (0.0-2.0); EOSINOPHILS % (AUTO) 5.9 % (1.0-6.0); HEMATOCRIT 31.5 % (36-46); HEMOGLOBIN 10.2 g/dL (12.0-16.0); LYMPHOCYTES # (AUTO) 1.9 K/uL (1.0-4.8); LYMPHOCYTES % (AUTO) 22.5 % (22.0-44.0); MEAN CORPUSCULAR HEMOGLOBIN 30.6 pg (26.0-34.0); MEAN CORPUSCULAR HGB CONC 32.3 G/dL (31.0-37.0); MEAN CORPUSCULAR VOLUME 95 fL (80-100); MONOCYTES % (AUTO) 11.7 % (2.0-9.0); NEUTROPHILS # (AUTO) 5.1 K/uL (1.8-7.7); NEUTROPHILS % (AUTO) 59.5 % (40.0-70.0); PLATELET COUNT (AUTO) 219 K/uL (150-450); RED BLOOD CELL COUNT(AUTO) 3.32 MIL/uL (4.00-5.20); RED CELL DISTRIBUTION WIDTH 13.4 % (11.5-14.5); WHITE BLOOD COUNT (AUTO) 8.6 K/uL (4.5-11.0)
[2016-05-13 07:12] VITALS: BP 171/78
[2016-05-13 07:32] LABS: ALBUMIN 2.4 g/dL (3.4-5.0); BILIRUBIN,TOTAL 0.3 mg/dL (0.1-1.0); CALCIUM, TOTAL 8.6 mg/dL (8.8-10.5); CREATININE 3.39 mg/dL (0.60-1.30); MAGNESIUM 2.5 mg/dL (1.80-2.40); POTASSIUM 3.9 mmol/L (3.5-5.1); TOTAL PROTEIN, SERUM 5.8 g/dL (6.4-8.2)
[2016-05-13] MEDS: ASPIRIN 81 MG EC TABLET PO SCH (08:52)
[2016-05-13] MEDS: CALCIUM ACETATE 667 MG CAPSULE PO SCH ×3 (08:53→18:43)
[2016-05-13] MEDS: CefTRIAXone 1 GM/DEXTROSE 50 ML IV SCH ×3 (08:54→14:54)
[2016-05-13] MEDS: ACETYLCYSTEINE 20% 200 MG/ML 4 ML ORAL SOLUTION PO SCH ×2 (08:54→20:20)
[2016-05-13] MEDS: METOPROLOL TARTRATE 25 MG TABLET PO SCH ×2 (08:54→20:18)
[2016-05-13] MEDS: AmLODIPine BESYLATE 5 MG TABLET PO SCH (08:55)
[2016-05-13] MEDS: PANTOPRAZOLE SODIUM 40 MG DR TABLET PO SCH (08:55)
[2016-05-13] MEDS: EPOETIN ALFA 10,000 UNITS/ML VIAL SQ SCH (08:56)
[2016-05-13] MEDS ORDERED: SODIUM CHLORIDE 0.9% 250 ML IV ONE (09:09)
[2016-05-13 09:41] LABS: GLUCOSE,POINT OF CARE 88 MG/DL (70-110)
[2016-05-13 09:41] LABS: GLUCOSE,POINT OF CARE 90 MG/DL (70-110)
[2016-05-13 09:41] LABS: GLUCOSE,POINT OF CARE 129 MG/DL (70-110)
[2016-05-13 09:41] LABS: GLUCOSE,POINT OF CARE 135 MG/DL (70-110)
[2016-05-13] MEDS: SOD FERRIC GLUC COMPLX/SUCROSE 125 MG in SODIUM CHLORIDE 0.9% 100 ML IV SCH (10:00)
[2016-05-13 16:11] VITALS: BP 168/68
[2016-05-13 19:51] VITALS: BP 167/73
[2016-05-13 22:41] LABS: GLUCOSE,POINT OF CARE 122 MG/DL (70-110)
[2016-05-13 22:41] LABS: GLUCOSE,POINT OF CARE 110 MG/DL (70-110)
[2016-05-13 23:35] VITALS: BP 154/78
[2016-05-14] VITALS (8 sets, daily range): BP systolic 144–172; BP diastolic 62–89
[2016-05-14 07:21] LABS: GLUCOSE,POINT OF CARE 128 MG/DL (70-110)
[2016-05-14 07:21] LABS: GLUCOSE,POINT OF CARE 87 MG/DL (70-110)
[2016-05-14 07:27] LABS: CALCIUM, TOTAL 8.9 mg/dL (8.8-10.5); CREATININE 3.82 mg/dL (0.60-1.30); MAGNESIUM 2.4 mg/dL (1.80-2.40); PHOSPHORUS 3.2 mg/dL (2.5-4.9); POTASSIUM 4.1 mmol/L (3.5-5.1)
[2016-05-14] MEDS: AmLODIPine BESYLATE 5 MG TABLET PO SCH ×2 (08:45→21:32)
[2016-05-14] MEDS: NITROGLYCERIN 2% (1 GM=INCH) PACKET TP SCH ×2 (08:45→16:00)
[2016-05-14] MEDS: PANTOPRAZOLE SODIUM 40 MG DR TABLET PO SCH (08:45)
[2016-05-14] MEDS: METOPROLOL TARTRATE 25 MG TABLET PO SCH ×2 (08:45→21:32)
[2016-05-14] MEDS: CALCIUM ACETATE 667 MG CAPSULE PO SCH ×3 (08:45→18:15)
[2016-05-14] MEDS: ASPIRIN 81 MG EC TABLET PO SCH (08:45)
[2016-05-14] MEDS: ACETYLCYSTEINE 20% 200 MG/ML 4 ML ORAL SOLUTION PO SCH ×2 (08:46→21:32)
[2016-05-14] MEDS: CefTRIAXone 1 GM/DEXTROSE 50 ML IV SCH (08:48)
[2016-05-14] MEDS: SOD FERRIC GLUC COMPLX/SUCROSE 125 MG in SODIUM CHLORIDE 0.9% 100 ML IV SCH (11:19)
[2016-05-14] MEDS: INSULIN ASPART 100 UNITS/ML SQ PRN ×2 (11:39→17:49)
[2016-05-14] MEDS: HydrALAZINE HCL 20 MG/ML VIAL IVP PRN (16:00)
[2016-05-14] MEDS ORDERED: BISACODYL 10 MG RECTAL RECTAL SUPPOSITORY PR PRN (17:30)
[2016-05-14 17:38] LABS: CREATININE 3.9 mg/dL (0.60-1.30)
[2016-05-14 18:51] LABS: GLUCOSE,POINT OF CARE 87 MG/DL (70-110)
[2016-05-14] MEDS: DOCUSATE SODIUM 100 MG CAPSULE PO SCH (21:32)
[2016-05-15] VITALS (7 sets, daily range): BP systolic 143–174; BP diastolic 62–77
[2016-05-15] MEDS: NITROGLYCERIN 2% (1 GM=INCH) PACKET TP SCH ×4 (00:22→23:48)
[2016-05-15 07:12] LABS: GLUCOSE,POINT OF CARE 118 MG/DL (70-110)
[2016-05-15 07:12] LABS: GLUCOSE COMMENT 1 Received Meds; GLUCOSE,POINT OF CARE 88 MG/DL (70-110)
[2016-05-15] MEDS: DOCUSATE SODIUM 100 MG CAPSULE PO SCH ×2 (08:19→20:28)
[2016-05-15] MEDS: PANTOPRAZOLE SODIUM 40 MG DR TABLET PO SCH (08:19)
[2016-05-15] MEDS: AmLODIPine BESYLATE 5 MG TABLET PO SCH ×2 (08:19→20:28)
[2016-05-15] MEDS: ASPIRIN 81 MG EC TABLET PO SCH (08:20)
[2016-05-15] MEDS: CALCIUM ACETATE 667 MG CAPSULE PO SCH ×3 (08:20→18:20)
[2016-05-15] MEDS: ACETYLCYSTEINE 20% 200 MG/ML 4 ML ORAL SOLUTION PO SCH (08:20)
[2016-05-15] MEDS: METOPROLOL TARTRATE 25 MG TABLET PO SCH ×2 (08:20→20:28)
[2016-05-15] MEDS: CefTRIAXone 1 GM/DEXTROSE 50 ML IV SCH (08:20)
[2016-05-15] MEDS: EPOETIN ALFA 10,000 UNITS/ML VIAL SQ SCH (08:22)
[2016-05-15] MEDS ORDERED: SODIUM CHLORIDE 0.9% 100 ML ONE (08:35)
[2016-05-15 08:41] LABS: CREATININE 4.14 mg/dL (0.60-1.30); MAGNESIUM 2.5 mg/dL (1.80-2.40); PHOSPHORUS 3.8 mg/dL (2.5-4.9); POTASSIUM 4.1 mmol/L (3.5-5.1)
[2016-05-15] MEDS: INSULIN ASPART 100 UNITS/ML SQ PRN (11:53)
[2016-05-15 17:25] LABS: CREATININE 4.27 mg/dL (0.60-1.30)
[2016-05-15] MEDS: HydrALAZINE HCL 20 MG/ML VIAL IVP PRN (22:15)
[2016-05-15] MEDS: OxyCODONE HCL/ACETAMINOPHEN 5-325 MG TABLET PO PRN (23:47)
[2016-05-16 04:28] VITALS: BP 142/66
[2016-05-16] MEDS: INSULIN ASPART 100 UNITS/ML SQ PRN (06:39)
[2016-05-16 06:45] LABS: BASOPHILS % (AUTO) 0.5 % (0.0-2.0); EOSINOPHILS % (AUTO) 6.3 % (1.0-6.0); HEMATOCRIT 32.2 % (36-46); HEMOGLOBIN 10.4 g/dL (12.0-16.0); LYMPHOCYTES # (AUTO) 1.7 K/uL (1.0-4.8); LYMPHOCYTES % (AUTO) 25.4 % (22.0-44.0); MEAN CORPUSCULAR HEMOGLOBIN 30.8 pg (26.0-34.0); MEAN CORPUSCULAR HGB CONC 32.3 G/dL (31.0-37.0); MEAN CORPUSCULAR VOLUME 96 fL (80-100); MONOCYTES # (AUTO) 0.6 K/uL (0.1-1.0); NEUTROPHILS % (AUTO) 58.8 % (40.0-70.0); PLATELET COUNT (AUTO) 223 K/uL (150-450); RED BLOOD CELL COUNT(AUTO) 3.37 MIL/uL (4.00-5.20); RED CELL DISTRIBUTION WIDTH 14.2 % (11.5-14.5); WHITE BLOOD COUNT (AUTO) 6.8 K/uL (4.5-11.0)
[2016-05-16 07:08] LABS: ALBUMIN 2.4 g/dL (3.4-5.0); BILIRUBIN,TOTAL 0.2 mg/dL (0.1-1.0); CALCIUM, TOTAL 8.9 mg/dL (8.8-10.5); CREATININE 4.6 mg/dL (0.60-1.30); MAGNESIUM 2.5 mg/dL (1.80-2.40); PHOSPHORUS 3.8 mg/dL (2.5-4.9); POTASSIUM 3.9 mmol/L (3.5-5.1); TOTAL PROTEIN, SERUM 5.9 g/dL (6.4-8.2)
[2016-05-16 07:44] VITALS: BP 127/54
[2016-05-16] MEDS: METOPROLOL TARTRATE 25 MG TABLET PO SCH ×2 (09:00→19:46)
[2016-05-16] MEDS: PANTOPRAZOLE SODIUM 40 MG DR TABLET PO SCH (09:55)
[2016-05-16] MEDS: DOCUSATE SODIUM 100 MG CAPSULE PO SCH ×2 (09:55→19:46)
[2016-05-16] MEDS: AmLODIPine BESYLATE 5 MG TABLET PO SCH ×2 (09:55→19:46)
[2016-05-16] MEDS: CALCIUM ACETATE 667 MG CAPSULE PO SCH ×3 (10:02→18:36)
[2016-05-16] MEDS: CefTRIAXone 1 GM/DEXTROSE 50 ML IV SCH (10:02)
[2016-05-16] MEDS: NITROGLYCERIN 2% (1 GM=INCH) PACKET TP SCH ×3 (10:02→23:57)
[2016-05-16 11:59] VITALS: BP 142/74
[2016-05-16 14:57] LABS: GLUCOSE,POINT OF CARE 119 MG/DL (70-110)
[2016-05-16] MEDS: ASPIRIN 81 MG EC TABLET PO SCH (14:57)
[2016-05-16 15:18] VITALS: BP 136/56
[2016-05-16] MEDS: OxyCODONE HCL/ACETAMINOPHEN 5-325 MG TABLET PO PRN (19:46)
[2016-05-16 19:48] VITALS: BP 171/69
[2016-05-16 19:50] LABS: CREATININE 4.8 mg/dL (0.60-1.30)
[2016-05-16 23:35] VITALS: BP 154/62
[2016-05-17 02:42] LABS: GLUCOSE,POINT OF CARE 122 MG/DL (70-110)
[2016-05-17 04:10] VITALS: BP 149/63
[2016-05-17 06:28] LABS: CALCIUM, TOTAL 8.9 mg/dL (8.8-10.5); CREATININE 4.95 mg/dL (0.60-1.30); MAGNESIUM 2.5 mg/dL (1.80-2.40); PHOSPHORUS 4.2 mg/dL (2.5-4.9); POTASSIUM 4.3 mmol/L (3.5-5.1)
[2016-05-17 07:19] VITALS: BP 144/55
[2016-05-17] MEDS: METOPROLOL TARTRATE 25 MG TABLET PO SCH (08:14)
[2016-05-17] MEDS: CefTRIAXone 1 GM/DEXTROSE 50 ML IV SCH (08:14)
[2016-05-17] MEDS: NITROGLYCERIN 2% (1 GM=INCH) PACKET TP SCH (08:14)
[2016-05-17] MEDS: CALCIUM ACETATE 667 MG CAPSULE PO SCH (08:14)
[2016-05-17] MEDS: DOCUSATE SODIUM 100 MG CAPSULE PO SCH (08:14)
[2016-05-17] MEDS: AmLODIPine BESYLATE 5 MG TABLET PO SCH (08:14)
[2016-05-17] MEDS: ASPIRIN 81 MG EC TABLET PO SCH (08:14)
[2016-05-17] MEDS: PANTOPRAZOLE SODIUM 40 MG DR TABLET PO SCH (08:15)
[2016-05-17] MEDS: EPOETIN ALFA 10,000 UNITS/ML VIAL SQ SCH (08:16)
[2016-05-18 11:57] LABS: GLUCOSE,POINT OF CARE 92 MG/DL (70-110)
[2016-05-18 11:57] LABS: GLUCOSE,POINT OF CARE 92 MG/DL (70-110)
[2016-05-18 11:57] LABS: GLUCOSE,POINT OF CARE 89 MG/DL (70-110)
[2016-05-18 11:58] LABS: GLUCOSE,POINT OF CARE 94 MG/DL (70-110)
[2016-05-18 11:58] LABS: GLUCOSE,POINT OF CARE 93 MG/DL (70-110)
[2016-05-18 11:58] LABS: GLUCOSE,POINT OF CARE 101 MG/DL (70-110)
[2016-05-18 12:02] LABS: GLUCOSE,POINT OF CARE 76 MG/DL (70-110)
[2016-08-01] MEDS ORDERED: HYDR25 PO (17:32)
== END 2016-05-17 11:40 | disposition short-term general hospital (02) | DRG 871 ==
LOC: EMS 02:37 → ICU 05-06 03:35 → ICUN 05-06 05:43 → ICU 05-06 05:43 → 5S 05-07 12:04
PROVIDERS: ADMIT Hospitalist; ATTEND Hospitalist
PROC: 05HB33Z Insertion of Infusion Device into Right Basilic Vein, Percutaneous Approach (ICD-10-PCS; 2016-05-06)
PROC: 3E0234Z Introduction of Serum, Toxoid and Vaccine into Muscle, Percutaneous Approach (ICD-10-PCS; 2016-05-06)
PROC: 30243N1 Transfusion of Nonautologous Red Blood Cells into Central Vein, Percutaneous Approach (ICD-10-PCS; 2016-05-07)
PROC: 4A023N7 Measurement of Cardiac Sampling and Pressure, Left Heart, Percutaneous Approach (ICD-10-PCS; principal; 2016-05-12)
PROC: B211YZZ Fluoroscopy of Multiple Coronary Arteries using Other Contrast (ICD-10-PCS; 2016-05-12)
PROC: B215YZZ Fluoroscopy of Left Heart using Other Contrast (ICD-10-PCS; 2016-05-12)
PROC: 05H933Z Insertion of Infusion Device into Right Brachial Vein, Percutaneous Approach (ICD-10-PCS; 2016-05-15)
DX: A41.9 Sepsis, unspecified organism (principal); I21.4 Non-ST elevation (NSTEMI) myocardial infarction; I50.21 Acute systolic (congestive) heart failure; N39.0 Urinary tract infection, site not specified; E44.1 Mild protein-calorie malnutrition; I13.0 Hypertensive heart and chronic kidney disease with heart failure and stage 1 through stage 4 chronic kidney disease, or unspecified chronic kidney disease; N17.9 Acute kidney failure, unspecified; I16.1 Hypertensive emergency; I42.9 Cardiomyopathy, unspecified; K92.2 Gastrointestinal hemorrhage, unspecified; N18.4 Chronic kidney disease, stage 4 (severe); B96.20 Unspecified Escherichia coli [E. coli] as the cause of diseases classified elsewhere; E11.21 Type 2 diabetes mellitus with diabetic nephropathy; E11.22 Type 2 diabetes mellitus with diabetic chronic kidney disease; E78.00 Pure hypercholesterolemia, unspecified; E78.5 Hyperlipidemia, unspecified; E83.39 Other disorders of phosphorus metabolism; E83.41 Hypermagnesemia; E87.5 Hyperkalemia; E11.42 Type 2 diabetes mellitus with diabetic polyneuropathy; I25.10 Atherosclerotic heart disease of native coronary artery without angina pectoris; I35.0 Nonrheumatic aortic (valve) stenosis; N28.89 Other specified disorders of kidney and ureter; I16.0 Hypertensive urgency; D50.9 Iron deficiency anemia, unspecified; I34.0 Nonrheumatic mitral (valve) insufficiency; N31.9 Neuromuscular dysfunction of bladder, unspecified; Z79.899 Other long term (current) drug therapy; Z90.49 Acquired absence of other specified parts of digestive tract; Z79.84 Long term (current) use of oral hypoglycemic drugs; Z23 Encounter for immunization; Z68.32 Body mass index [BMI] 32.0-32.9, adult
CPT/HCPCS: 74176; 76770; 81050; 82271; 82306; 82565; 82575; 82607; 82746; 82962; 83036; 83540; 83550; 83605; 83735; 83970; 84100; 84132; 84156; 84166; 84520; 85014; 85018; 86850; 86900; 86901; 86920; 87040; 87081; 87086; 90471; 93005; 93306; 93880; 94640; 94660; 96365; 96372; 96375; 99285; J0360; J0696; J0885; J1644; J1815; J1940; J2405; J2916; J3010; J3475; J3490; J7030; J7050; J7060; P9016; Q9967

== ENCOUNTER 2016-08-01 17:06 | Inpatient (IN) | payer MEDICARE ==
[~2016-08-01] VITALS: Ht 152.4 cm; Wt 65.5 kg
[~2016-08-01 17:06] MED LIST: AMLO-511 PO; METF500T4 PO; METO25 PO
[2016-08-01 17:16] LABS: GLUCOSE,POINT OF CARE 71 MG/DL (70-110)
[2016-08-01] MEDS ORDERED: TRAM50TA4 PO (17:32)
[2016-08-01] MEDS ORDERED: LEVO75 PO (17:32)
[2016-08-01] MEDS ORDERED: DOXY100C PO (17:32)
[2016-08-01] MEDS ORDERED: SITA25 PO (17:32)
[2016-08-01] MEDS ORDERED: LOSA25TA21 PO (17:32)
[2016-08-01] MEDS ORDERED: SIMV-259 PO (17:32)
[2016-08-01] MEDS ORDERED: PANT40TA25 PO (17:32)
[2016-08-01] MEDS ORDERED: FURO20 PO (17:32)
[2016-08-01] MEDS ORDERED: HYDR25TA84 PO (17:32)
[2016-08-01] MEDS ORDERED: MORPHINE SULFATE 2 MG/ML SYRINGE IVP ONE (17:45)
[2016-08-01] MEDS ORDERED: ONDANSETRON HCL 4 MG/2 ML VIAL IVP ONE (17:45)
[2016-08-01 18:29] LABS: CALCIUM, TOTAL 8.8 mg/dL (8.8-10.5); CREATININE 3.61 mg/dL (0.60-1.30)
[2016-08-01 18:35] LABS: ALBUMIN 2.2 g/dL (3.4-5.0); BILIRUBIN,TOTAL 0.6 mg/dL (0.1-1.0); TOTAL PROTEIN, SERUM 5.6 g/dL (6.4-8.2)
[2016-08-01] MEDS: GLYCERIN 1 RECTAL SUPPOSITORY [PEDIATRIC] PR ONE ×2 (18:58→19:07)
[2016-08-01 19:00] LABS: BASOPHILS % (AUTO) 0.6 % (0.0-2.0); EOSINOPHILS % (AUTO) 0.2 % (1.0-6.0); HEMATOCRIT 30.2 % (36-46); HEMOGLOBIN 9.7 g/dL (12.0-16.0); LYMPHOCYTES # (AUTO) 1.6 K/uL (1.0-4.8); LYMPHOCYTES % (AUTO) 28.9 % (22.0-44.0); MEAN CORPUSCULAR HEMOGLOBIN 30.7 pg (26.0-34.0); MEAN CORPUSCULAR HGB CONC 32.1 G/dL (31.0-37.0); MEAN CORPUSCULAR VOLUME 96 fL (80-100); MONOCYTES # (AUTO) 0.4 K/uL (0.1-1.0); MONOCYTES % (AUTO) 7.5 % (2.0-9.0); NEUTROPHILS # (AUTO) 3.5 K/uL (1.8-7.7); NEUTROPHILS % (AUTO) 62.8 % (40.0-70.0); PLATELET COUNT (AUTO) 190 K/uL (150-450); RED BLOOD CELL COUNT(AUTO) 3.16 MIL/uL (4.00-5.20); RED CELL DISTRIBUTION WIDTH 16.7 % (11.5-14.5); WHITE BLOOD COUNT (AUTO) 5.5 K/uL (4.5-11.0)
[2016-08-01] MEDS ORDERED: DEXTROSE 50%-WATER 25 GM/50 ML SYRINGE IVP PRN (21:15)
[2016-08-01] MEDS ORDERED: BISACODYL 10 MG RECTAL RECTAL SUPPOSITORY PR PRN (21:15)
[2016-08-01 22:56] VITALS: BP 136/61
[2016-08-02 04:09] VITALS: BP 124/64
[2016-08-02 07:10] VITALS: BP 122/59
[2016-08-02 07:27] LABS: GLUCOSE,POINT OF CARE 75 MG/DL (70-110)
[2016-08-02] MEDS: HEPARIN SODIUM,PORCINE 5,000 UNITS/ML VIAL SQ SCH ×2 (08:16→20:42)
[2016-08-02] MEDS: PANTOPRAZOLE SODIUM 40 MG DR TABLET PO SCH (08:23)
[2016-08-02] MEDS: DOCUSATE SODIUM 100 MG CAPSULE PO SCH ×2 (08:23→20:41)
[2016-08-02] MEDS: VITAMIN B COMP/VIT C/FOLIC ACID CAPSULE PO SCH (08:23)
[2016-08-02] MEDS: ASPIRIN 81 MG CHEWABLE TABLET PO SCH (08:23)
[2016-08-02] MEDS ORDERED: VITAMIN B COMP/VIT C/FOLIC ACID CAPSULE PO SCH (10:45)
[2016-08-02 11:26] VITALS: BP 127/55
[2016-08-02] MEDS ORDERED: SODIUM CHLORIDE 0.9% 2,000 ML IV ONE (13:02)
[2016-08-02] MEDS ORDERED: VANCOMYCIN HCL 1 GM/D5% WATER 200 ML IV ONE (14:00)
[2016-08-02] MEDS: CefTRIAXone 1 GM/DEXTROSE 50 ML IV SCH (18:15)
[2016-08-02] MEDS ORDERED: SODIUM CHLORIDE 0.9% 500 ML IV ONE (18:18)
[2016-08-02] MEDS ORDERED: HEPARIN SODIUM,PORCINE 1,000 UNITS/ML VIAL IVP ONE (18:24)
[2016-08-02 19:31] VITALS: BP 133/64
[2016-08-02 20:12] LABS: GLUCOSE COMMENT 1 Juice/Food/D50 Given; GLUCOSE,POINT OF CARE 67 MG/DL (70-110)
[2016-08-02 20:12] LABS: GLUCOSE,POINT OF CARE 92 MG/DL (70-110)
[2016-08-02 20:12] LABS: GLUCOSE COMMENT 1 Received Meds; GLUCOSE,POINT OF CARE 85 MG/DL (70-110)
[2016-08-02] MEDS: ATORVASTATIN CALCIUM 10 MG TABLET PO SCH (20:41)
[2016-08-02 23:35] VITALS: BP 146/68
[2016-08-03 03:47] LABS: GLUCOSE,POINT OF CARE 104 MG/DL (70-110)
[2016-08-03 04:28] VITALS: BP 127/59
[2016-08-03 07:08] VITALS: BP 132/73
[2016-08-03 07:12] LABS: GLUCOSE,POINT OF CARE 77 MG/DL (70-110)
[2016-08-03 07:32] LABS: BASOPHILS % (AUTO) 0.1 % (0.0-2.0); EOSINOPHILS # (AUTO) 0.05 K/uL (0.00-0.70); HEMATOCRIT 28.6 % (36-46); HEMOGLOBIN 9.6 g/dL (12.0-16.0); LYMPHOCYTES # (AUTO) 2.2 K/uL (1.0-4.8); LYMPHOCYTES % (AUTO) 37.7 % (22.0-44.0); MEAN CORPUSCULAR HEMOGLOBIN 32.4 pg (26.0-34.0); MEAN CORPUSCULAR HGB CONC 33.5 G/dL (31.0-37.0); MEAN CORPUSCULAR VOLUME 97 fL (80-100); MONOCYTES # (AUTO) 0.4 K/uL (0.1-1.0); MONOCYTES % (AUTO) 6.7 % (2.0-9.0); NEUTROPHILS # (AUTO) 3.2 K/uL (1.8-7.7); NEUTROPHILS % (AUTO) 54.8 % (40.0-70.0); PLATELET COUNT (AUTO) 178 K/uL (150-450); RED BLOOD CELL COUNT(AUTO) 2.95 MIL/uL (4.00-5.20); RED CELL DISTRIBUTION WIDTH 16.9 % (11.5-14.5); WHITE BLOOD COUNT (AUTO) 5.8 K/uL (4.5-11.0)
[2016-08-03 07:45] LABS: CALCIUM, TOTAL 8.3 mg/dL (8.8-10.5); CREATININE 2.38 mg/dL (0.60-1.30)
[2016-08-03] MEDS: DOCUSATE SODIUM 100 MG CAPSULE PO SCH ×2 (08:24→21:36)
[2016-08-03] MEDS: PANTOPRAZOLE SODIUM 40 MG DR TABLET PO SCH (08:24)
[2016-08-03] MEDS: VITAMIN B COMP/VIT C/FOLIC ACID CAPSULE PO SCH (08:24)
[2016-08-03] MEDS: HEPARIN SODIUM,PORCINE 5,000 UNITS/ML VIAL SQ SCH ×2 (08:24→21:36)
[2016-08-03] MEDS: ASPIRIN 81 MG CHEWABLE TABLET PO SCH (08:24)
[2016-08-03 11:09] VITALS: BP 134/52
[2016-08-03] MEDS: CefTRIAXone 1 GM/DEXTROSE 50 ML IV SCH (14:09)
[2016-08-03 14:46] VITALS: BP 113/50
[2016-08-03] MEDS: ACETAMINOPHEN 325 MG TABLET PO PRN ×2 (15:07→21:41)
[2016-08-03 19:12] VITALS: BP 154/58
[2016-08-03] MEDS: ATORVASTATIN CALCIUM 10 MG TABLET PO SCH (21:36)
[2016-08-03] MEDS: INSULIN ASPART 100 UNITS/ML SQ PRN (21:37)
[2016-08-03 23:58] VITALS: BP 155/63
[2016-08-04] MEDS ORDERED: VANCOMYCIN HCL 1 GM/D5% WATER 200 ML IV PRN (00:30)
[2016-08-04] MEDS ORDERED: VANCOMYCIN HCL 1.25 GM in DEXTROSE 5%-WATER 250 ML IV ONE (01:00)
[2016-08-04] MEDS ORDERED: SODIUM CHLORIDE 0.9% 100 ML ONE (01:18)
[2016-08-04 05:01] VITALS: BP 151/64
[2016-08-04 05:21] LABS: APPEARANCE,URINE TURBID (CLEAR); GLUCOSE, URINE (UA) NEGATIVE (NEGATIVE); KETONES,URINE TRACE mg/dL (NEGATIVE); LEUKOCYTE ESTERASE ,URINE LARGE (NEGATIVE); OCCULT BLOOD,URINE LARGE (NEGATIVE); PH,URINE 6.5 (5.0-8.0); PROTEIN,URINE SEE CONFIRM (NEGATIVE)
[2016-08-04 05:45] LABS: ADD UA MICROSCOPIC YES
[2016-08-04 05:57] LABS: GLUCOSE,POINT OF CARE 83 MG/DL (70-110)
[2016-08-04] MEDS: INSULIN ASPART 100 UNITS/ML SQ PRN ×2 (06:23→21:49)
[2016-08-04 06:51] LABS: SULFOSALICYLIC ACID,URINE 3+ (Negative)
[2016-08-04 06:56] LABS: WBC,URINE Full Field /HPF (0-5)
[2016-08-04 07:08] LABS: GLUCOSE COMMENT 1 Received Meds; GLUCOSE,POINT OF CARE 85 MG/DL (70-110)
[2016-08-04 07:23] VITALS: BP 150/63
[2016-08-04] MEDS: DOCUSATE SODIUM 100 MG CAPSULE PO SCH ×2 (08:44→21:36)
[2016-08-04] MEDS: VITAMIN B COMP/VIT C/FOLIC ACID CAPSULE PO SCH (08:44)
[2016-08-04] MEDS: ASPIRIN 81 MG CHEWABLE TABLET PO SCH (08:44)
[2016-08-04] MEDS: PANTOPRAZOLE SODIUM 40 MG DR TABLET PO SCH (08:44)
[2016-08-04] MEDS: HEPARIN SODIUM,PORCINE 5,000 UNITS/ML VIAL SQ SCH ×2 (08:45→21:37)
[2016-08-04] MEDS: EPOETIN ALFA 10,000 UNITS/ML VIAL SQ SCH (10:53)
[2016-08-04 11:15] VITALS: BP 151/59
[2016-08-04] MEDS: CefTRIAXone 1 GM/DEXTROSE 50 ML IV SCH (13:59)
[2016-08-04 16:00] VITALS: BP 136/64
[2016-08-04 17:17] LABS: GLUCOSE,POINT OF CARE 82 MG/DL (70-110)
[2016-08-04 17:18] LABS: GLUCOSE,POINT OF CARE 81 MG/DL (70-110)
[2016-08-04 20:02] LABS: GLUCOSE,POINT OF CARE 74 MG/DL (70-110)
[2016-08-04 20:02] LABS: GLUCOSE COMMENT 1 Received Meds; GLUCOSE,POINT OF CARE 71 MG/DL (70-110)
[2016-08-04 20:59] VITALS: BP 149/64
[2016-08-04] MEDS: ATORVASTATIN CALCIUM 10 MG TABLET PO SCH (21:36)
[2016-08-04] MEDS: ACETAMINOPHEN 325 MG TABLET PO PRN (21:39)
[2016-08-05 00:14] VITALS: BP 132/51
[2016-08-05 00:37] LABS: GLUCOSE,POINT OF CARE 79 MG/DL (70-110)
[2016-08-05] MEDS: ACETAMINOPHEN 325 MG TABLET PO PRN ×2 (01:47→16:10)
[2016-08-05 05:05] VITALS: BP 127/59
[2016-08-05] MEDS: INSULIN ASPART 100 UNITS/ML SQ PRN (06:17)
[2016-08-05 07:35] VITALS: BP 123/58
[2016-08-05 07:42] LABS: GLUCOSE,POINT OF CARE 77 MG/DL (70-110)
[2016-08-05] MEDS ORDERED: SODIUM CHLORIDE 0.9% 100 ML ONE (08:22)
[2016-08-05] MEDS ORDERED: IOVERSOL 320 MG/ML 100 ML VIAL ONE (08:22)
[2016-08-05 10:54] VITALS: BP 128/57
[2016-08-05] MEDS: PANTOPRAZOLE SODIUM 40 MG DR TABLET PO SCH (11:34)
[2016-08-05] MEDS: ASPIRIN 81 MG CHEWABLE TABLET PO SCH (11:34)
[2016-08-05] MEDS: DOCUSATE SODIUM 100 MG CAPSULE PO SCH ×2 (11:34→22:21)
[2016-08-05] MEDS: HEPARIN SODIUM,PORCINE 5,000 UNITS/ML VIAL SQ SCH ×2 (11:35→22:21)
[2016-08-05] MEDS: VITAMIN B COMP/VIT C/FOLIC ACID CAPSULE PO SCH (11:35)
[2016-08-05 15:49] VITALS: BP 125/52
[2016-08-05] MEDS ORDERED: HEPARIN SODIUM,PORCINE 1,000 UNITS/ML VIAL IVP ONE ×3 (16:57→18:00)
[2016-08-05] MEDS ORDERED: SODIUM CHLORIDE 0.9% 1,000 ML IV ONE (17:57)
[2016-08-05] MEDS ORDERED: MANNITOL 25%-12.5 GM/50 ML VIAL IVP PRN (18:00)
[2016-08-05] MEDS: CefTRIAXone 1 GM/DEXTROSE 50 ML IV SCH (18:23)
[2016-08-05] MEDS ORDERED: SODIUM CHLORIDE 0.9% 50 ML ONE (18:26)
[2016-08-05 20:11] LABS: GLUCOSE,POINT OF CARE 95 MG/DL (70-110)
[2016-08-05 20:30] VITALS: BP 141/63
[2016-08-05 20:38] LABS: GLUCOSE,POINT OF CARE 70 MG/DL (70-110)
[2016-08-05 22:11] LABS: GLUCOSE,POINT OF CARE 106 MG/DL (70-110)
[2016-08-05] MEDS: ATORVASTATIN CALCIUM 10 MG TABLET PO SCH (22:21)
[2016-08-06] MEDS: ACETAMINOPHEN 325 MG TABLET PO PRN (00:04)
[2016-08-06 00:34] VITALS: BP 164/64
[2016-08-06 05:54] VITALS: BP 142/60
[2016-08-06 07:06] LABS: BASOPHILS % (AUTO) 0.4 % (0.0-2.0); EOSINOPHILS % (AUTO) 1.2 % (1.0-6.0); HEMATOCRIT 29.4 % (36-46); HEMOGLOBIN 9.4 g/dL (12.0-16.0); LYMPHOCYTES # (AUTO) 2.6 K/uL (1.0-4.8); LYMPHOCYTES % (AUTO) 37.7 % (22.0-44.0); MEAN CORPUSCULAR HEMOGLOBIN 30.7 pg (26.0-34.0); MEAN CORPUSCULAR HGB CONC 32.1 G/dL (31.0-37.0); MEAN CORPUSCULAR VOLUME 96 fL (80-100); MONOCYTES # (AUTO) 0.5 K/uL (0.1-1.0); MONOCYTES % (AUTO) 7.8 % (2.0-9.0); NEUTROPHILS # (AUTO) 3.6 K/uL (1.8-7.7); NEUTROPHILS % (AUTO) 52.9 % (40.0-70.0); PLATELET COUNT (AUTO) 151 K/uL (150-450); RED BLOOD CELL COUNT(AUTO) 3.07 MIL/uL (4.00-5.20); RED CELL DISTRIBUTION WIDTH 17.2 % (11.5-14.5); WHITE BLOOD COUNT (AUTO) 6.8 K/uL (4.5-11.0)
[2016-08-06 07:18] VITALS: BP 131/58
[2016-08-06 07:27] LABS: GLUCOSE,POINT OF CARE 83 MG/DL (70-110)
[2016-08-06 07:46] LABS: CREATININE 2.02 mg/dL (0.60-1.30); POTASSIUM 3.6 mmol/L (3.5-5.1)
[2016-08-06] MEDS: DOCUSATE SODIUM 100 MG CAPSULE PO SCH (09:00)
[2016-08-06] MEDS: HEPARIN SODIUM,PORCINE 5,000 UNITS/ML VIAL SQ SCH (09:20)
[2016-08-06] MEDS: PANTOPRAZOLE SODIUM 40 MG DR TABLET PO SCH (09:21)
[2016-08-06] MEDS: VITAMIN B COMP/VIT C/FOLIC ACID CAPSULE PO SCH (09:21)
[2016-08-06] MEDS: ASPIRIN 81 MG CHEWABLE TABLET PO SCH (09:21)
[2016-08-06] MEDS: EPOETIN ALFA 10,000 UNITS/ML VIAL SQ SCH (09:21)
[2016-08-06 11:01] VITALS: BP 134/54
[2016-08-06 11:32] LABS: GLUCOSE,POINT OF CARE 93 MG/DL (70-110)
[2016-08-06] MEDS ORDERED: SODIUM CHLORIDE 0.9% 50 ML ONE (14:08)
[2016-08-06] MEDS: CefTRIAXone 1 GM/DEXTROSE 50 ML IV SCH (14:09)
[2016-08-06 16:59] VITALS: BP 115/53
[2016-08-06 17:31] LABS: CREATININE 2.28 mg/dL (0.60-1.30)
[2016-08-06 18:07] LABS: GLUCOSE,POINT OF CARE 115 MG/DL (70-110)
[2016-08-06 19:44] VITALS: BP 137/68
== END 2016-08-06 19:40 | DRG 862 ==
LOC: EMS 17:07 → 5N 21:15
PROVIDERS: ADMIT Internal Medicine; ATTEND Internal Medicine
PROC: 02HV33Z Insertion of Infusion Device into Superior Vena Cava, Percutaneous Approach (ICD-10-PCS; 2016-08-01)
PROC: 5A1D60Z (ICD-10-PCS; principal; 2016-08-02)
PROC: 0W980ZZ Drainage of Chest Wall, Open Approach (ICD-10-PCS; 2016-08-04)
DX: T81.4XXA Infection following a procedure, initial encounter (principal); N18.6 End stage renal disease; E43 Unspecified severe protein-calorie malnutrition; I13.2 Hypertensive heart and chronic kidney disease with heart failure and with stage 5 chronic kidney disease, or end stage renal disease; N13.30 Unspecified hydronephrosis; N39.0 Urinary tract infection, site not specified; I50.22 Chronic systolic (congestive) heart failure; J98.11 Atelectasis; Z66 Do not resuscitate; E11.22 Type 2 diabetes mellitus with diabetic chronic kidney disease; I25.10 Atherosclerotic heart disease of native coronary artery without angina pectoris; E78.5 Hyperlipidemia, unspecified; D63.8 Anemia in other chronic diseases classified elsewhere; E03.9 Hypothyroidism, unspecified; Y99.8 Other external cause status; B95.61 Methicillin susceptible Staphylococcus aureus infection as the cause of diseases classified elsewhere; B37.9 Candidiasis, unspecified; X58.XXXA Exposure to other specified factors, initial encounter; K44.9 Diaphragmatic hernia without obstruction or gangrene; R62.7 Adult failure to thrive; K59.00 Constipation, unspecified; Y83.8 Other surgical procedures as the cause of abnormal reaction of the patient, or of later complication, without mention of misadventure at the time of the procedure; N28.9 Disorder of kidney and ureter, unspecified; Z86.14 Personal history of Methicillin resistant Staphylococcus aureus infection; Z74.01 Bed confinement status; Z79.4 Long term (current) use of insulin; Z95.1 Presence of aortocoronary bypass graft; Z95.2 Presence of prosthetic heart valve; Z22.322 Carrier or suspected carrier of Methicillin resistant Staphylococcus aureus; Z68.28 Body mass index [BMI] 28.0-28.9, adult; Z99.2 Dependence on renal dialysis; Y93.89 Activity, other specified; Y92.89 Other specified places as the place of occurrence of the external cause
CPT/HCPCS: 71260; 74176; 82565; 82962; 84443; 84520; 86140; 86706; 87040; 87070; 87081; 87086; 87106; 87147; 87205; 87340; 90935; 93005; 96374; 96375; 99285; J0696; J0885; J1644; J2270; J2405; J3370; J7030; J7040; J7050; J7060